=== PATIENT | male | born 2000 | race Caucasian/White ===

== ENCOUNTER 2022-01-28 14:01 | Emergency (ER) | payer SELFPAY ==
[2022-01-28 14:02] VITALS: BP 138/84; PULSE 69; RESP 16; TEMP 36.3; O2SAT 100; BMI 21.9
--- NOTE | 2022-01-28 14:14 | EDS_ITS ---
HPI History of Present Illness Chief Complaint: Upper Extremity Injury Detail of Chief Complaint: Left back and shoulder blade pain Informant: patient Narrative Narrative: Patient presents to the emergency department complaint of pain in his left upper back underneath the shoulder blade that started about 6 days ago. 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 Pains been there continuously. Patient denies any fever or chills or sweats. Pain is worse with certain movements and with deep breath. Patient is right-hand dominant. He denies any significant shortness of breath. PFSH PFSH Medical History no medical history Home Medications cyclobenzaprine 10 mg PO TID PRN #20 tablet 01/28/22 [Rx Last Taken Unknown] hydrocodone-acetaminophen 1 tab PO Q4H PRN PRN 2 Days #10 tablet 01/28/22 [Rx Last Taken Unknown] naproxen 500 mg PO BID #14 tab 01/28/22 [Rx Last Taken Unknown] Allergy/AdvReac Type Severity Reaction Status Date / Time No Known Allergies Allergy Verified 01/28/22 14:03 Surgical History no surgical history Social History Smoking Status: Unknown if ever smoked ROS ROS ED Constitutional Constitutional ED: Reports systems reviewed and no addt'l complaints, except as documented; Denies body ache(s), change in weight or chills Eyes Eyes: Denies acute decrease in peripheral vision, change in vision, double vision or loss of vision ENT ENT ED: Reports none; Denies ear pain, lip swelling, loss taste/smell, neck pain, otalgia or sore throat Cardiovascular Cardiovascular: Reports none; Denies abdominal pain, chest pain with activity, leg edema, lightheadedness, palpitations, rapid heart rate or syncope Respiratory/Chest Respiratory/Chest: Reports none; Denies change in mental status, dry cough, dyspnea, hemoptysis, shortness of breath at rest or shortness of breath with e xertion Gastrointestinal Gastrointestinal: Reports none; Denies abdominal pain, change in stool charact er, diarrhea, hematemesis, hematochezia, melena, rectal bleeding or vomiting Genitourinary Genitourinary ED: Reports none; Denies abdominal discomfort, anuria, dysuria, genital pain or polyuria Musculoskeletal Musculoskeletal: Reports none and back pain; Denies arthralgias, difficulty walking, extremity pain, muscle weakness or myalgias Integumentary Reports none; Denies abscess or rash Neurologic Neurologic: Reports none; Denies abnormal gait, confusion, focal weakness, frequent falls, headache(s), loss of vision, numbness, paresthesias, radicular pain, vertigo or weakness Psychiatric Psychiatric: Reports systems reviewed and no addt'l complaints, except as documented and none; Denies behavioral changes, confusion, difficulty co ncentrating, hallucinations, suicidal ideation, tactile hallucinations or visual hallucinations Endocrine Endocrinology: Denies none, cold intolerance, excessive sweating, fatigue or heat intolerance Hematologic/Lymphatic Hematologic/Lymphatic: Reports none; Denies anemia, easy bleeding or easy bruising Allergic/Immunologic Allergic/Immunologic ED: Denies as per HPI, none, lip swelling, mouth swelling, throat swelling, tongue swelling or hives EXAM Physical Exam Const Vital Signs: 01/28/22 14:02 Temperature 97.3 F L Temperature Source Temporal Pulse Rate 69 Respiratory Rate 16 Blood Pressure 138/84 H Blood Pressure Mean 102 Pulse Ox 100 Oxygen Delivery Method Room Air Positive well nourished and well developed General Appearance ED: well developed and NAD HEENT Reports TM's clear and moist mucous membranes normocephalic and atraumatic; Negative for trauma or tenderness Tympanic Membrane ED: Yes TM's clear Eyes PERRL and EOMs intact bilaterally General Eye ED: Negative for pale conjunctiva or scleral icterus Neck no lymphadenopathy, supple and no JVD General: Negative for tenderness Chest Wall inspection of chest normal and palpation of chest normal Chest: Negative for tenderness Resp normal respiratory effort and clear to auscultation bilaterally Effort and Inspection: Negative for respiratory distress or pain with movement Auscultation: Negative for rhonchi, wheezes or diminished lung sounds Cardio regular rate, regular rhythm, S1 normal heart sound, S2 normal heart sound and no murmurs Peripheral Pulses: pulses 2+ throughout GI normal to inspection, nondistended, normoactive bowel sounds, soft to palpation, non-tender, non-distended and no masses Back/Spine no thoracic nor lumbar tenderness Back/Spine Narrative: Evaluation of the back reveals tenderness palpation over the left thoracic paraspinal musculature just medial to the scapula that seems to somewhat reproduce his pain. Patient has no tenderness over the thoracic or lumbar spine. Extremity normal to inspection General Extremety ED: Negative for edema General Extremity: Negative for edema Neuro oriented x3, CN's II-XII intact bilaterally, no sensory deficits noted and gait normal Sensorium / Orientation: awake, alert, oriented to person, oriented to place and oriented to time Motor Exam: strength 5/5 throughout and strength abnormal Psych mental status grossly normal Skin no rashes or lesions noted and no wounds MDM MDM MDM Narrative Medical decision making narrative: I suspect patient likely has thoracic strain. Patient will be given work restrictions. Patient was given a prescription for Naprosyn, Flexeril, and a few [place] for pain. Patient did not want to file this under Workmen's Comp. Radiography Diagnostic Testin view chest x-ray obtained interpreted by myself as no acute disease process. Official report from radiology pending. I did not appreciate any pneumothorax or pneumonia or obvious fractured ribs. Discharge Plan Triage Chief Complaint: Upper Extremity Injury ED Provider: Argentina Jones Dx/Rx/DC Orders Clinical Impression: Thoracic myofascial strain Instructions: ED Back Sprain/Strain Prescriptions: New cyclobenzaprine [cyclobenzaprine] 10 MG tablet 10 mg PO TID PRN (Reason: Muscle Spasm) Qty: 20 RF: 0 hydrocodone-acetaminophen [hydrocodone-acetaminophen] 1 TABLET tablet 1 tab PO Q4H PRN PRN (Reason: Pain) 2 Days Qty: 10 RF: 0 naproxen 500 MG tablet 500 mg PO BID Qty: 14 RF: 0 Primary Care Provider: Care Physician,No Primary Referrals: Cecilia Yanes MD [STAFF PHYSICIAN] - 3-5 Days Care Physician,No Primary [Primary Care Provider] - Disposition Disposition: Home, Self Care
--- NOTE | 2022-01-28 14:33 | RAD_ITS ---
INDICATION: back pain EXAMINATION/TECHNIQUE: X-RAY - XR Chest 1 View COMPARISON: None. FINDINGS: The lungs are clear. The cardiomediastinal silhouette is unremarkable. No pleural effusion or pneumothorax. No acute osseous abnormalities. RAD/Chest 1 View (Portable) IMPRESSION: No acute radiographic abnormalities. Electronically Signed: El Sim MD at 16:35 EDT ,
== END 2022-01-28 14:56 | disposition home or self-care (01) ==
PROVIDERS: Emergency Provider Emergency Medicine; Visit Provider Emergency Medicine
DX: S29.019A Strain of muscle and tendon of unspecified wall of thorax, initial encounter (principal); X58.XXXA Exposure to other specified factors, initial encounter; Y99.0 Civilian activity done for income or pay
CPT/HCPCS: 71045; 99282

== ENCOUNTER 2025-09-13 20:20 | Emergency (ER) | payer SELFPAY ==
[2025-09-13 20:20] VITALS: BP 152/95; PULSE 91; RESP 16; TEMP 36.6; O2SAT 100; BMI 21.7
--- NOTE | 2025-09-13 21:18 | MRI_ITS ---
PROCEDURE: SPINE CERVICAL W/WO CONTRAST 09/13/2025 REASON FOR EXAM: BACK PAIN, RECENT SPINAL SURGERY TECHNIQUE: Procedure Code: [id number] Modality: MR Procedure: SPINE CERVICAL W/WO CONTRAST Multiplanar and multisequence images were obtained with intravenous gadolinium- based contrast administration. CONTRAST: Clariscan VOLUME: 15 mL COMPARISON: None. FINDINGS: Mild diffuse spondylosis. Multilevel degenerative disc disease. There is normal signal intensity from the visualized bone marrow without evidence of replacement or acute fracture. The visualized portions of the spinal cord are unremarkable. The visualized portions of the posterior fossa are unremarkable. There is normal cervical lordosis. Evaluation of the individual levels revealed the following: C2-C3: Grade 1 retrolisthesis measuring 2.4 mm. Mild diffuse disc bulge. The spinal canal is not narrowed. Minimal bilateral neural foramina narrowing. C3-C4: There is no evidence of disk herniation. The spinal canal is not narrowed. There is no evidence of neural foramina narrowing. C4-C5: Grade 1 retrolisthesis measuring 2.2 mm. Mild diffuse disc bulge. The spinal canal is not narrowed. Minimal bilateral neural foramina narrowing. C5-C6: Grade 1 anterolisthesis measuring 2.4 mm. Mild diffuse disc bulge. The spinal canal is not narrowed. There is moderate right and mild left neural foramina narrowing. C6-C7: There is mild diffuse disc bulge. Superimposed broad-based left paracentral/posterolateral disc protrusion measuring 3.5 mm. The spinal canal is not narrowed. There is mild bilateral neural foramina narrowing. No abnormal postcontrast enhancement is noted. MRI/Spine Cervical W/WO Contrast IMPRESSION: Degenerative disc disease. Reading [facility] [id number]
--- NOTE | 2025-09-13 21:18 | MRI_ITS ---
PROCEDURE: SPINE THORACIC W/WO CONTRAST 09/13/2025 REASON FOR EXAM: BACK PAIN, RECENT SPINAL SURGERY TECHNIQUE: Thoracic spine MRI without and with intravenous gadolinium-based contrast. Multiplanar and multisequence images were obtained. CONTRAST: Clariscan VOLUME: 15mL COMPARISON: CT angiography of the chest on 09/13/2025. FINDINGS: Prior decompression and fusion with unremarkable transpedicular screws from T2- T10 levels. Well-defined superficial subcutaneous seroma is noted in the upper aspect of the surgical bed measuring 12.3 x 1.8 x 4.2 cm in its largest craniocaudal, anteroposterior and transverse dimensions respectively without secondary narrowing of the spinal canal or compression of the cord. Unchanged compression deformities of the thoracic vertebral bodies, more prominent at T7 and T8. No associated bone marrow edema to suggest an acute or subacute compression. Mild diffuse disc bulges are noted T7-T8 and T8-T9 levels. T1-2, T2-3, T3-4, T4-5, T5-6, T6-7, T9-10, T10-11, T11-12, T12-L1: There is preservation of the disc heights. There is no endplate spondylosis. There is no annular bulge. There is no facet arthrosis. Normal central canal, lateral recesses and intervertebral neural foramina without neural impingement. Normal visualized lamina and spinous processes. Normal thoracic cord. There is no osseous destructive process. Normal visualized descending aorta. No demonstrated pulmonary abnormality of the visualized pulmonary structures. MRI/Spine Thoracic W/WO Contrast IMPRESSION: Prior decompression and fusion with unremarkable transpedicular screws from T2- T10 levels. Well-defined superficial subcutaneous seroma is noted in the upper aspect of th e surgical bed measuring 12.3 x 1.8 x 4.2 cm in its largest craniocaudal, anteroposterior and transverse dimensions respectivel y without secondary narrowing of the spinal canal or compression of the cord. Unchanged compression deformities of the thoracic vertebral bodies, more prominent at T7 and T8. No associated bone marrow edema to suggest an acute or subacute compression. Mild diffuse disc bulges are noted T7-T8 and T8-T9 levels. Reading [facility]
--- NOTE | 2025-09-13 21:18 | MRI_ITS ---
PROCEDURE: SPINE LUMBAR W/WO CONTRAST 09/13/2025 REASON FOR EXAM: BACK PAIN, RECENT SPINAL SURGERY TECHNIQUE: Procedure Code: [id number] Modality: MR Procedure: SPINE LUMBAR W/WO CONTRAST Multiplanar and multisequence images were obtained without and with intravenous gadolinium-based contrast administration. CONTRAST: Clariscan VOLUME: 15 mL COMPARISON: None. FINDINGS: There is normal signal intensity from the visualized bone marrow without evidence of replacement or acute fracture. The conus is unremarkable. Straightening of the lumbar lordosis. Evaluation of the individual levels revealed the following: L5-S1: Grade 1 retrolisthesis measuring 3.5 mm. Mild diffuse disc bulge. Superimposed broad-based central/right paracentral disc protrusion measuring 4.2 mm. The spinal canal is not narrowed. There is mild bilateral neural foramina narrowing. L4-5: There is mild diffuse disc bulge. Superimposed broad-based left paracentral disc extrusion measuring 3.2 mm. The spinal canal is not narrowed. There is mild bilateral neural foramina narrowing. L3-4: There is mild diffuse disc bulge. The spinal canal is not narrowed. There is mild bilateral neural foramina narrowing. L2-3: There is no evidence of disk herniation. The spinal canal is not narrowed. There is no evidence of neural foramina narrowing. L1-2: There is no evidence of disk herniation. The spinal canal is not narrowed. There is no evidence of neural foramina narrowing. Normal visualized paraspinous soft tissue structures. No abnormal postcontrast enhancement is noted. MRI/Spine Lumbar W/WO Contrast IMPRESSION: Degenerative disc disease. Reading [facility]
--- NOTE | 2025-09-13 21:21 | ED.VIS.BACK ---
HPI History of Present Illness Chief Complaint: Back Narrative Narrative: Patient is a 24-year-old male presenting to the emergency department for back pain. Patient fell from a 20 foot hunting had a stool on 09/04. He went to [facility] and was discharged on 09/09. Patient states that he ran out of his oxycodone yesterday and has been taking only Tylenol and Motrin since. States that he has worsening back pain today. He endorses subjective fever, states he was sweating. He denies any numbness or weakness in his legs. Denies any bowel or bladder retention or incontinence. Denies any numbness or weakness in his legs. Denies any saddle anesthesia. Family member at bedside also states that he has intermittently been having hemoptysis. He denies any chest pain or shortness of breath. PFSH PFS Home Medications ?Medication ?Instructions ?Recorded ?Last Taken ?Type ibuprofen 600 mg tablet (IBU) 600 mg PO Q8H 09/13/25 Unknown History methocarbamol 500 mg tablet 500 mg PO Q8H 09/13/25 Unknown History Allergy/AdvReac Type Severity Reaction Status Date / Time No Known Allergies Allergy Verified 09/13/25 20:20 Surgical History (Updated 09/13/25 @ 21:32 by Emma Parham) Hx of appendectomy History of back surgery Social History Smoking Status: Current every day smoker tobacco type: e-cigarettes ROS ROS ED ROS Narrative see HPI EXAM Physical Exam Narrative Exam Narrative: Vital signs: Reviewed General: Alert and orientedx3. No acute distress HEENT: Head is normocephalic and atraumatic, sinuses nontender, pupils equal round and reactive. Nares are patent. Oropharynx and throat exams normal. Neck: Supple without lymphadenopathy nontender Cardiovascular: Regular rate and rhythm, no murmurs. No rubs or gallops. Normal S1 and S2 Respiratory: Clear to auscultation bilaterally. No wheezes, rales, rhonchi Abdominal: Soft and nontender. Normal bowel sounds. No guarding or rebound. Nonsurgical abdomen Extremities: No tenderness. No bruising. Normal range of motion, 5 out of 5 strength in bilateral lower extremities. Normal sensation bilateral lower extremities. Back: Midline vertical surgical incision extending from upper thoracic to lower thoracic/lower lumbar that is healing well. There are ayanna still in place. There is no surrounding erythema, drainage or fluctuance to suspect a overlying cellulitis or abscess. Patient has no sensation on palpation of the midline cervical, thoracic or upper lumbar regions. Skin: No rash or redness. Neurological: Cranial nerves II through XII are grossly intact. Normal strength and sensation. Normal cerebellar function The rest of the physical exam is unremarkable Const Vital Signs: 09/13/25 20:20 09/13/25 21:54 09/13/25 22:20 Temperature 98 F Temperature Source Temporal Pulse Rate 91 80 Respiratory Rate 16 18 Respiratory Effort Normal Non-Labored Respiratory Pattern Normal Blood Pressure 152/95 H 154/96 H Blood Pressure Mean 114 115 Pulse Ox 100 95 Oxygen Delivery Method Room Air Room Air MDM MDM MDM Narrative Medical decision making narrative: Patient is a 24-year-old male presenting to the emergency department for back pain. Patient was seen and examined. Vitals are stable. Patient resting in bed comfortably no acute distress. Paperwork that was brought in by family member shows that he had T1 compression fracture, T5 and T8 burst fractures, T6 and T7 Chance fracture's, spinal cord edema from T6-T8. T2-T10 posterior spinal fusion was completed. Multiple other traumatic findings including mediastinal hematoma likely from the thoracic injury. was cleared by vascular surgery. Patient has no neurologic symptoms in his lower extremities and has no signs of cauda equina. Given the patient's extensive spinal surgery done about a week ago and his complaints of worsening back pain it is very difficult to exclude any spinal cord edema, hematoma, spinal epidural abscess without imaging. I think these are unlikely however he is very high risk for the above. Therefore MRI of the cervical, thoracic and lumbar spine were ordered. The patient ran out of his oxycodone yesterday which I think may be causing his worsening back pain however the above emergent causes need to be ruled out. Lab work was obtained. Patient was given morphine for pain control. CBC with no leukocytosis and anemia of 9.8. BMP with no significant abnormalities. CTA of the chest was also obtained due to feeling broke bedside stating that he has intermittently been coughing up blood. He states that this has been occurring since he was hospitalized however again he is high risk for pulmonary embolism given his recent significant trauma and hospitalization with decreased mobility. CT of the chest shows no acute intrathoracic abnormality and no pulmonary arterial emboli. EKG shows normal sinus rhythm with nonspecific T wave abnormality. No dysrhythmia. Patient will be signed out to oncoming provider pending MRI imaging. History & Record Review Discussion w/independent historian: Patient and Family Additional record(s) reviewed:: Prior outpatient record Lab Data Attestation: I reviewed the patient's lab results. Labs: Laboratory Results - last 24 hr 09/13/25 21:27 WBC 8.6 RBC 3.32 L Hgb 9.8 L Hct 29.6 L MCV 89.2 MCH 29.5 MCHC 33.1 RDW Std Deviation 45.1 H RDW Coeff of Lisandra 14.4 Plt Count 506 H MPV 8.8 Immature Gran % (Auto) 0.800 Neut % (Auto) 76.9 H Lymph % (Auto) 13.5 L [place] % (Auto) 7.7 Eos % (Auto) 0.6 Baso % (Auto) 0.5 Absolute Neuts (auto) 6.6 Absolute Lymphs (auto) 1.16 Nucleated RBC % 0 Sodium 144 Potassium 4.1 Chloride 106 Carbon Dioxide 28.8 Anion Gap 10 BUN 11 Creatinine 0.68 L Estim Creat Clear Calc 195.19 Est GFR (MDRD) Non-Af 133 BUN/Creatinine Ratio 16.6 Glucose 119 H Calcium 9.6 Radiography Diagnostic Testing: Clinical Impression(s) from Imaging Studies Chest CTA 09/13/25 21:55 IMPRESSION: No acute intrathoracic abnormality. No pulmonary arterial emboli. Reading Location: [facility] Discharge Plan Triage Chief Complaint: Back ED Provider: Aliyah Alvarado Dx/Rx/DC Orders Prescriptions: No Action methocarbamol 500 mg tablet 500 mg PO Q8H ibuprofen [IBU] 600 mg tablet 600 mg PO Q8H Primary Care Provider: Care Physician,No Primary Referrals: Care Physician,No Primary [Primary Care Provider, Medical] Print Language: Greek
--- OUTSIDE RECORDS SUMMARY | 2025-09-13 21:31 | XMS RPT_ITS | CCD ---
Author Organization [facility] Care Team Providers Care Hydropulper Name Role Phone LINDA CUELLAR Attending Unavailable GABRIELE HOLCOMB Primary Care Unavailable NO, PHYSICIAN Primary Care Unavailable Unavailable Primary Care Provider Unavailabl e Unavailable Primary Care Provider Unavailabl e Medications Current Medications Medication Drug Class(es) Dates Sig (Normalized) Sig (Original) acetaminophen 325 mg / HYDROcodone bitartrate 5 mg oral tablet (1 source) Opioid Agonist Start: 01-28-2022 take 1 tablet by mouth every four hours as needed Hydrocodone-Acetamin ophen Active 1 TABLET PO EVERY 4 HOURS NEEDED 07 29January 28, 2022 2:49pm azithromycin 250 mg oral tablet (1 source) Macrolide Antimicrobial Start: 08-07-2023 End: 08-12-2023 azithromycin (ZITHROMAX Z-AMAYA) 250 mg tablet Indications: Non-recurrent acute serous otitis media of right ear Take 2 tablets day one, then, 1 tablet daily until gone. 6 tablet 0 08/07/2023 08/12/2023 Active Comment on above: Take 2 tablets day o ne, then, 1 tablet daily until gone. benzonatate 100 mg oral capsule (2 sources) Non-narcotic Antitussive Start: 08-07-2023 take 1 capsule by mouth three times daily as needed for cough benzonatate (TESSALON PERLES) 100 mg capsule Indications: Acute cough Take 1 capsule by mouth three times a day as needed for cough. 60 capsule 08/07/2023 Active Comment on above: Take 1 capsule by mo [facility] three times a day as needed for cough. cyclobenzaprine hydrochloride 10 mg oral tablet (1 source) Muscle Relaxant Start: 01-28-2022 take 10 mg by mouth three times daily Cyclobenzaprine Active 10 MG PO THREE TIMES A DAY January 28, 2022 2:49pm naproxen 500 mg oral tablet (1 source) Nonsteroidal Anti-inflammatory Drug Start: 01-28-2022 take 500 mg by mouth twice daily Naproxen Active 500 MG PO TWICE A DAY January 28, 2022 2:49pm penicillin v potassium 500 mg oral tablet (1 source) Start: 12-29-2024 End: 01-08-2025 take 1 tablet by mouth four times daily penicillin V potassium 500 mg tablet Indications: Dental infection Take 1 tablet by mouth four times daily for 10 days. 40 tablet 12/29/2024 01/08/2025 Active polymyxin b 97818 unt/ml / trimethoprim 1 mg/ml ophthalmic solution (1 source) Dihydrofolate Reductase Inhibitor Antibacterial, Polymyxin-class Antibacterial Start: 05-10-2023 End: 05-17-2023 take 1 drop(s) into the eye(s) every four hours trimethoprim-polymyx in (POLYTRIM) 10,000 unit- 1 mg/mL ophthalmic solution Use 1 Drop in the right eye every 4 hours for 7 days. 10 mL 0 05/10/2023 05/17/2023 Active Comment on above: Use 1 Drop in the ri ght eye every 4 hours for 7 days. Problems Problem Classification Problem Date Documented Da te Episodic/Chronic Disorders of teeth and jaw (1 source) Infection of tooth; Translations: [Periapical abscess without sinus] 12-29-2024 Episodic Inflammation; infection of eye (except that caused by tuberculosis or sexually transmitteddisease) (1 source) Bacterial conjunctivitis; Translations: [Unspecified conjunctivitis] 05-10-2023 Episodic Other lower respiratory disease (1 source) Cough; Translations: [Acute cough] 08-07-2023 Episodic Otitis media and related conditions (1 source) Acute non-suppurative otitis media - serous; Translations: [Acute serous otitis media, right ear] 08-07-2023 Episodic Sprains and strains (1 source) Strain of muscle at thorax level; Translations: [Strain of muscle and tendon of unspecified wall of thorax, initial encounter] Episodic Results Test Name Value Interpretation Reference Range Facil tena ARMSTRONGon 12-29-2024 CNOV Office Visit ([facility] ) RICHAR MACIEL ([id number]) 2000 M Date Time Provider Department 12/29/24 10:15 AM ASHLEY NEFF [facility] During your visit today, we recorded the following information about you: Temperature Pulse Respiration Blood pressure 98 degrees 68/minute 16/minute 136/84 Weight 84.7 kg Ashley Neff PA-C 12/29/2024 9:36 AM Signed This note was created using [employer]. Subjective Richar Maciel is a 24 year old male. Patient is a 24-year-old male who complains of increasing pain and swelling to the site of a recent dental extraction that he received on Saturday, 21 December 2024. Patient reports no bleeding, serous or purulent fluid to the site. Patient states that the remainder of his dentitions and gingiva are unaffected. Patient reports no fever, chills or other illness symptoms. Dental Problem Review of Systems HENT: Positive for dental problem. All other systems reviewed and are negative. Objective BP 136/84 Pulse 68 Temp 36.7 ?C (98 ?F) (Tympanic) Resp 16 Wt 84.7 kg (186 lb 11.7 oz) SpO2 97% Physical Exam Vitals and nursing note reviewed. Constitutional: Appearance: Normal appearance. He is normal weight. HENT: Head: Normocephalic and atraumatic. Right Ear: External ear normal. Left Ear: External ear normal. Nose: Nose normal. Mouth/Throat: Mouth: Mucous membranes are moist. Pharynx: Oropharynx is clear. Comments: Post-extraction socket is noted to the right mandibular first molar. Mild edema is noted, however there is no erythema or visible abscess. No bleeding, serous appearing fluid is noted. Buccal mucosa and lingual mucosa are clear. Eyes: Extraocular Movements: Extraocular movements intact. Conjunctiva/sclera: Conjunctivae normal. Pupils: Pupils are equal, round, and reactive to light. Cardiovascular: Rate and Rhythm: Normal rate and regular rhythm. Pulses: Normal pulses. Heart sounds: Normal heart sounds. Pulmonary: Effort: Pulmonary effort is normal. Breath sounds: Normal breath sounds. Musculoskeletal: Cervical back: Normal range of motion and neck supple. Skin: General: Skin is warm and dry. Capillary Refill: Capillary refill takes less than 2 seconds. Neurological: General: No focal deficit present. Mental Status: He is alert and oriented to person, place, and time. Psychiatric: Mood and Affect: Mood normal. Behavior: Behavior normal. Thought Content: Thought content normal. Judgment: Judgment normal. Assessment and Plan Physical exam findings as noted above. Patient was provided with a prescription for penicillin VK 500 mg and advised to schedule an appointment with his dentist for reevaluation and further management. Patient verbalizes clear understanding the above instructions. CLINICAL IMPRESSION: Post-Extraction Dental Infection ASSESSMENT/PLAN: 1. Dental infection - ICD9: 522.4, ICD10: K04.7 - PENICILLIN V POTASSIUM 500 MG TABLET Ashley Neff PA-C Allergies As of Date: 12/29/2024 (No Known Allergies) Date Reviewed: 12/29/2024 Reviewed by: Tonia Cobb LPN - Fully Assessed Reason for Visit: Dental Problem [31] Cmt: Tooth extraction 1 week ago-now pain in right jaw Primary Visit Diagnosis:Dental infection [K04.7] Order(s):penicillin V potassium 500 mg tabletTake 1 tablet by mouth four times daily for 10 days.Disp: 40 tabletRfl: 0 Prescriptions as of 12/29/2024 - penicillin V potassium 500 mg tablet Take 1 tablet by mouth four times daily for 10 days. - benzonatate (TESSALON PERLES) 100 mg capsule Take 1 capsule by mouth three times a day as needed for cough. Problem List As Of Date: 12/29/2024 (None) Prescriptions ordered this encounter Disp Refills Start End PENICILLIN V POTASSIUM 500 MG TABLET 40 t* 0 12/29/2024 01/08/2025 Route: ORAL Sig: Take 1 tablet by mouth four times daily for 10 days. Level of Service: OFFICE/OUTPATIENT [facility] 30 MINUTES [73330] Letter Text Encounter Status:Closed by ASHLEY NEFF on 12/29/24 Normal [facility] Chest 1 View (Portable)on Chest 1 View (Portable) [facility] Imaging Services [address] [place] [id number] Chest 1 View (Portable) MR#: [id number] Acct: [id number] Name: RICHAR MACIEL Rep #: [id number] : 2000 M 21 From: [place] MD PCP: Care Physician,No Primary Status: DEP ER Study: Chest 1 View (Portable) Date of Exam: 01/28/22 Exam# [id number] Ordering Dr: rAgentina Jones DO INDICATION: back pain EXAMINATION/TECHNIQUE: X-RAY - XR Chest 1 View COMPARISON: None. FINDINGS: The lungs are clear. The cardiomediastinal silhouette is unremarkable. No pleural effusion or pneumothorax. No acute osseous abnormalities. RAD/Chest 1 View (Portable) IMPRESSION: No acute radiographic abnormalities. Electronically Signed: El Sim MD at 16:35 EDT , CC: Dr. Argentina Jones DO; No Primary Care Physician Road Traffic Controller: Signed Normal [facility] Emergency Department Summary on 01-28-2022 Emergency Department Summary [facility] Medical Records Department [address] [place] [id number] Emergency Department Summary 01/28/22 MR#: [id number] Acct: [id number] Name: RICHAR MACIEL Rep #: [id number] : 2000 21 From: Argentina Jones DO PCP: Care Physician,No Primary Status:DEP ER Location: ED HPI History of Present Illness Chief Complaint: Upper Extremity Injury Detail of Chief Complaint: Left back and shoulder blade pain Informant: patient Narrative Narrative: Patient presents to the emergency department complaint of pain in his left upper back underneath the shoulder blade that started about 6 days ago. 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 Pains been there continuously. Patient denies any fever or chills or sweats. Pain is worse with certain movements and with deep breath. Patient is right-hand dominant. He denies any significant shortness of breath. PFSH PFSH Medical History no medical history Home Medications cyclobenzaprine 10 mg PO TID PRN #20 tablet 01/28/22 [Rx Last Taken Unknown] hydrocodone-acetaminoph en 1 tab PO Q4H PRN PRN 2 Days #10 tablet 01/28/22 [Rx Last Taken Unknown] naproxen 500 mg PO BID #14 tab 01/28/22 [Rx Last Taken Unknown] Allergy/AdvReac Type Severity Reaction Status Date / Time No Known Allergies Allergy Verified 01/28/22 14:03 Surgical History no surgical history Social History Smoking Status: Unknown if ever smoked ROS ROS ED Constitutional Constitutional ED: Reports systems reviewed and no addt'l complaints, except as documented; Denies body ache(s), change in weight or chills Eyes Eyes: Denies acute decrease in peripheral vision, change in vision, double vision or loss of vision ENT ENT ED: Reports none; Denies ear pain, lip swelling, loss taste/smell, neck pain, otalgia or sore throat Cardiovascular Cardiovascular: Reports none; Denies abdominal pain, chest pain with activity, leg edema, lightheadedness, palpitations, rapid heart rate or syncope Respiratory/Chest Respiratory/Chest: Reports none; Denies change in mental status, dry cough, dyspnea, hemoptysis, shortness of breath at rest or shortness of breath with exertion Gastrointestinal Gastrointestinal: Reports none; Denies abdominal pain, change in stool character, diarrhea, hematemesis, hematochezia, melena, rectal bleeding or vomiting Genitourinary Genitourinary ED: Reports none; Denies abdominal discomfort, anuria, dysuria, genital pain or polyuria Musculoskeletal Musculoskeletal: Reports none and back pain; Denies arthralgias, difficulty walking, extremity pain, muscle weakness or myalgias Integumentary Reports none; Denies abscess or rash Neurologic Neurologic: Reports none; Denies abnormal gait, confusion, focal weakness, frequent falls, headache(s), loss of vision, numbness, paresthesias, radicular pain, vertigo or weakness Psychiatric Psychiatric: Reports systems reviewed and no addt'l complaints, except as documented and none; Denies behavioral changes, confusion, difficulty concentrating, hallucinations, suicidal ideation, tactile hallucinations or visual hallucinations Endocrine Endocrinology: Denies none, cold intolerance, excessive sweating, fatigue or heat intolerance Hematologic/Lymphatic Hematologic/Lymphatic: Reports none; Denies anemia, easy bleeding or easy bruising Allergic/Immunologic Allergic/Immunologic ED: Denies as per HPI, none, lip swelling, mouth swelling, throat swelling, tongue swelling or hives EXAM Physical Exam Const Vital Signs: 01/28/22 14:02 Temperature 97.3 F L Temperature Source Temporal Pulse Rate 69 Respiratory Rate 16 Blood Pressure 138/84 H Blood Pressure Mean 102 Pulse Ox 100 Oxygen Delivery Method Room Air Positive well nourished and well developed General Appearance ED: well developed and NAD HEENT Reports TM's clear and moist mucous membranes normocephalic and atraumatic; Negative for trauma or tenderness Tympanic Membrane ED: Yes TM's clear Eyes PERRL and EOMs intact bilaterally General Eye ED: Negative for pale conjunctiva or scleral icterus Neck no lymphadenopathy, supple and no JVD General: Negative for tenderness Chest Wall inspection of chest normal and palpation of chest normal Chest: Negative for tenderness Resp normal respiratory effort and clear to auscultation bilaterally Effort and Inspection: Negative for respiratory distress or pain with movement Auscultation: Negative for rhonchi, wheezes or diminished lung sounds Cardio regular rate, regular rhythm, S1 normal heart sound, S2 normal heart sound and no murmurs Peripheral Pulses: pulses 2+ throughout GI normal to inspection, nondistended, normoactive bowel sounds, soft to palpation, non-tender, non- distended and (more content not included)... Normal [facility] Vital Signs Date Time Vital Sign Value Performing Clinician Facility 12-29-2024 09:14-0500 Body temperature 98.01 [degF] [employer] Work Phone: [facility] 12-29-2024 09:14-0500 Body weight 84.7 kg SHADOW PA-[employer] Work Phone: [facility] 12-29-2024 09:14-0500 Diastolic blood pressure 84 mm[Hg] SHADOW PA-C Work Phone: [facility] 12-29-2024 09:14-0500 Heart rate 68 /min SHADOW PA-C Work Phone: [facility] 12-29-2024 09:14-0500 Respiratory rate 16 /min SHADOW PA-C Work Phone: [facility] 12-29-2024 09:14-0500 SaO2% (BldA) [Mass fraction] 97 % Ashley Coelhobarbie PA-C Work Phone: [facility] 12-29-2024 09:14-0500 Systolic blood pressure 136 mm[Hg] Ashley Neff PA-C Work Phone: [facility] 08-07-2023 08:46-0400 Body temperature 97.7 [degF] Aisha Fox APRN.[employer] Work Phone: [facility] 08-07-2023 08:46-0400 Body weight 79.38 kg Aisha Fox APRN.[employer] Work Phone: [facility] 08-07-2023 08:46-0400 Diastolic blood pressure 62 mm[Hg] Aisha Fox APRN.[employer] Work Phone: [facility] 08-07-2023 08:46-0400 Heart rate 72 /min Aisha Fox APRN.[employer] Work Phone: [facility] 08-07-2023 08:46-0400 Respiratory rate 16 /min Aisha Fox APRN.[employer] Work Phone: [facility] 08-07-2023 08:46-0400 SaO2% (BldA) [Mass fraction] 98 % Aisha Fox APRN.[employer] Work Phone: [facility] 08-07-2023 08:46-0400 Systolic blood pressure 122 mm[Hg] Aisha Fox APRN.[employer] Work Phone: [facility] 05-10-2023 08:34-0400 Body temperature 97.3 [degF] Aria Steward HOSPITALITY ASSOCIATE.[employer] Work Phone: [facility] 05-10-2023 08:34-0400 Body weight 79.11 kg Aria Steward HOSPITALITY ASSOCIATE.[employer] Work Phone: [facility] 05-10-2023 08:34-0400 Diastolic blood pressure 72 mm[Hg] Aria Steward HOSPITALITY ASSOCIATE.[employer] Work Phone: [facility] 05-10-2023 08:34-0400 Heart rate 54 /min Aria Callow HOSPITALITY ASSOCIATE.[employer] Work Phone: [facility] 05-10-2023 08:34-0400 Respiratory rate 16 /min Aria Steward HOSPITALITY ASSOCIATE.[employer] Work Phone: [facility] 05-10-2023 08:34-0400 SaO2% (BldA) [Mass fraction] 97 % Aria Steward HOSPITALITY ASSOCIATE.[employer] Work Phone: [facility] 05-10-2023 08:34-0400 Systolic blood pressure 122 mm[Hg] Aria Tamikojoy HOSPITALITY ASSOCIATE.[employer] Work Phone: [facility] 01-28-2022 14:02-0400 Body height 195.58 cm [facility] Work Phone: 01-28-2022 14:02-0400 Body mass index (BMI) [Ratio] 21.9 kg/m2 [facility] Work Phone: 01-28-2022 14:02-0400 Body temperature 97.3 [degF] [facility] Work Phone: 01-28-2022 14:02-0400 Body weight 83.91 kg [facility] Work Phone: 01-28-2022 14:02-0400 Diastolic blood pressure 84 mm[Hg] [facility] Work Phone: 01-28-2022 14:02-0400 Heart rate 69 /min [facility] Work Phone: 01-28-2022 14:02-0400 Respiratory rate 16 /min [facility] Work Phone: 01-28-2022 14:02-0400 SaO2% (BldA) [Mass fraction] 100 % [facility] Work Phone: 01-28-2022 14:02-0400 Systolic blood pressure 138 mm[Hg] [facility] Work Phone: Encounters Encounter Date Encounter Type Care Provider Facility Start: 12-29-2024 End: 12-29-2024 Office outpatient new 30 minutes Ashley Neff PA-C Work Phone: [facility] Comment on above: Dental infection (Pr imary Dx) Start: 12-29-2024 End: 12-29-2024 ambulatory Facility:[facility] Start: 08-07-2023 End: 08-07-2023 Patient encounter procedure Aisha Fox HOSPITALITY ASSOCIATE.[employer] Work Phone: [facility] Comment on above: Non-recurrent acute serous otitis media of right ear (Primary Dx); Acute cough Start: 05-10-2023 End: 05-10-2023 Patient encounter procedure Aria Steward HOSPITALITY ASSOCIATE.[employer] Work Phone: [facility] Comment on above: Bacterial conjunctiv itis (Primary Dx) Start: 01-28-2022 End: 01-28-2022 Emergency department patient visit [facility] Start: 03-14-2020 Patient encounter procedure [facility] Start: 12-08-2018 End: 12-12-2018 Patient encounter procedure PHYSICIAN [facility] Plan of Treatment Date Care Activity Detail Author Start: 06-28-2024 Covid-19 Vaccine ( season) Covid-19 Vaccine ( season) [facility] Start: 06-28-2024 Influenza vaccination Influenza Vaccine (#1) [facility] Start: 06-28-2023 Influenza vaccination [facility] Start: 10-28-2022 DEPRESSION ASSESSMENT DEPRESSION ASSESSMENT [facility] Start: 01-28-2022 Plain chest X-ray Chest 1 View (Portable) [facility] Work Phone: Start: 2018 Hepatitis B Vaccine (1 of 3 - 19+ 3-dose series) Hepatitis B Vaccine (1 of 3 - 19+ 3-dose series) [facility] Start: 2018 Pneumococcal vaccination Pneumococcal Vaccine (1 of 2 - PCV) [facility] Start: 2018 Urine microalbumin profile [facility] Start: 2017 Anxiety Screening Anxiety Screening [facility] Start: 2017 Depression Screening Depression Screening [facility] Start: 2017 HEPATITIS C SCREENING HEPATITIS C SCREENING [facility] Start: 2017 Hepatitis C screening Hepatitis C Screening [facility] Start: 2017 HIV SCREENING HIV SCREENING [facility] Start: 2017 HIV screening HIV Screening [facility] Start: 2015 Meningococcal B Vaccine: Consider Based On Risk (1 of 2 - Patient Seeks Protection) Meningococcal B Vaccine: Consider Based On Risk (1 of 2 - Patient Seeks Protection) [facility] Start: 2014 HPV Vaccine (1 - Male 3-dose series) HPV Vaccine (1 - Male 3-dose series) [facility] Start: 2013 PEDS TO ADULT TRANSITION ANNUAL ASSESSMENT PEDS TO ADULT TRANSITION ANNUAL ASSESSMENT [facility] Start: 2011 PEDS TO ADULT TRANSITION INITIAL DISCUSSION PEDS TO ADULT TRANSITION INITIAL DISCUSSION [facility] Start: 2008 HPV VACCINE (1 - Male 2-dose series) HPV VACCINE (1 - Male 2-dose series) [facility] Start: 2005 Pneumococcal vaccination Pneumococcal Vaccine (1 - PCV) [facility] Start: 03-22-2000 COVID-19 VACCINE (#1) COVID-19 VACCINE (#1) [facility] Start: 1999 HEPATITIS B (1 of 3 - 3-dose series) HEPATITIS B (1 of 3 - 3-dose series) [facility] Start: 1999 Hepatitis B Vaccine (1 of 3 - 3-dose series) Hepatitis B Vaccine (1 of 3 - 3-dose series) [facility] Patient Education ED Back Sprain/Strain [facility] Work Phone: Patient referral [facility] Work Phone: Payers Date Payer Category Payer Unknown [id number] 1967 Unknown [id number] 1967 Unknown [id number] Self-pay SELF PAY INSURANCE [id number] Unknown SELF PAY INSURANCE [id number] Social History Date Type Detail Facility Start: [facility]-28-[facility] Work Phone: Start: 2000 Sex Assigned At Male [facility] Work Phone: Start: 05-10-2023 [facility] History of tobacco use Cigarette Smoker [facility] Start: 05-10-2023 Tobacco use and exposure Smokeless tobacco non-user [facility] Start: 05-10-2023 End: 12-29-2024 History of Social function [facility] Start: 05-10-2023 End: 12-29-2024 Tobacco use panel [facility] Start: 2000 Sex Assigned At Not on file C [facility] Progress note 12-29-2024 Note Date & Type Note Facility 12-29-2024 Note HNO ID: [id number] Author: ASHLEY NEFF PA-C Service: ? Author Type: Physician [employer] Installation Mechanic Type: Progress Notes Filed: 12/29/2024 09:36 Note Text: This note was created using [employer]. Subjective Richar Maciel is a 24 year old male. Patient is a 24-year-old male who complains of increasing pain and swelling to the site of a recent dental extraction that he received on Saturday, 21 December 2024. Patient reports no bleeding, serous or purulent fluid to the site. Patient states that the remainder of his dentitions and gingiva are unaffected. Patient reports no fever, chills or other illness symptoms. Dental Problem Review of Systems HENT: Positive for dental problem. All other systems reviewed and are negative. Objective BP 136/84 Pulse 68 Temp 36.7 ?C (98 ?F) (Tympanic) Resp 16 Wt 84.7 kg (186 lb 11.7 oz) SpO2 97% Physical Exam Vitals and nursing note reviewed. Constitutional: Appearance: Normal appearance. He is normal weight. HENT: Head: Normocephalic and atraumatic. Right Ear: External ear normal. Left Ear: External ear normal. Nose: Nose normal. Mouth/Throat: Mouth: Mucous membranes are moist. Pharynx: Oropharynx is clear. Comments: Post-extraction socket is noted to the right mandibular first molar. Mild edema is noted, however there is no erythema or visible abscess. No bleeding, serous appearing fluid is noted. Buccal mucosa and lingual mucosa are clear. Eyes: Extraocular Movements: Extraocular movements intact. Conjunctiva/sclera: Conjunctivae normal. Pupils: Pupils are equal, round, and reactive to light. Cardiovascular: Rate and Rhythm: Normal rate and regular rhythm. Pulses: Normal pulses. Heart sounds: Normal heart sounds. Pulmonary: Effort: Pulmonary effort is normal. Breath sounds: Normal breath sounds. Musculoskeletal: Cervical back: Normal range of motion and neck supple. Skin: General: Skin is warm and dry. Capillary Refill: Capillary refill takes less than 2 seconds. Neurological: General: No focal deficit present. Mental Status: He is alert and oriented to person, place, and time. Psychiatric: Mood and Affect: Mood normal. Behavior: Behavior normal. Thought Content: Thought content normal. Judgment: Judgment normal. Assessment and Plan Physical exam findings as noted above. Patient was provided with a prescription for penicillin VK 500 mg and advised to schedule an appointment with his dentist for reevaluation and further management. Patient verbalizes clear understanding the above instructions. CLINICAL IMPRESSION: Post-Extraction Dental Infection ASSESSMENT/PLAN: 1. Dental infection - ICD9: 522.4, ICD10: K04.7 - PENICILLIN V POTASSIUM 500 MG TABLET Ashley Neff PA-C [facility] History of Present illness Narrative 12-29-2024 Ashley Neff PA-C - 12/29/2024 9:32 AM EST Note Date & Type Note Facility 12-29-2024 History of Presen t illness Narrative This note was created using Sailogyter. Subjective Richar Maciel is a 24 year old male. Patient is a 24-year-old male who complains of increasing pain and swelling to the site of a recent dental extraction that he received on Saturday, 21 December 2024. Patient reports no bleeding, serous or purulent fluid to the site. Patient states that the remainder of his dentitions and gingiva are unaffected. Patient reports no fever, chills or other illness symptoms. Dental Problem Review of Systems HENT: Positive for dental problem. All other systems reviewed and are negative. Objective BP 136/84 Pulse 68 Temp 36.7 C (98 F) (Tympanic) Resp 16 Wt 84.7 kg (186 lb 11.7 oz) SpO2 97% Physical Exam Vitals and nursing note reviewed. Constitutional: Appearance: Normal appearance. He is normal weight. HENT: Head: Normocephalic and atraumatic. Right Ear: External ear normal. Left Ear: External ear normal. Nose: Nose normal. Mouth/Throat: Mouth: Mucous membranes are moist. Pharynx: Oropharynx is clear. Comments: Post-extraction socket is noted to the right mandibular first molar. Mild edema is noted, however there is no erythema or visible abscess. No bleeding, serous appearing fluid is noted. Buccal mucosa and lingual mucosa are clear. Eyes: Extraocular Movements: Extraocular movements intact. Conjunctiva/sclera: Conjunctivae normal. Pupils: Pupils are equal, round, and reactive to light. Cardiovascular: Rate and Rhythm: Normal rate and regular rhythm. Pulses: Normal pulses. Heart sounds: Normal heart sounds. Pulmonary: Effort: Pulmonary effort is normal. Breath sounds: Normal breath sounds. Musculoskeletal: Cervical back: Normal range of motion and neck supple. Skin: General: Skin is warm and dry. Capillary Refill: Capillary refill takes less than 2 seconds. Neurological: General: No focal deficit present. Mental Status: He is alert and oriented to person, place, and time. Psychiatric: Mood and Affect: Mood normal. Behavior: Behavior normal. Thought Content: Thought content normal. Judgment: Judgment normal. Assessment and Plan Physical exam findings as noted above. Patient was provided with a prescription for penicillin VK 500 mg and advised to schedule an appointment with his dentist for reevaluation and further management. Patient verbalizes clear understanding the above instructions. CLINICAL IMPRESSION: Post-Extraction Dental Infection ASSESSMENT/PLAN: 1. Dental infection - ICD9: 522.4, ICD10: K04.7 - PENICILLIN V POTASSIUM 500 MG TABLET Ashley Neff PA-C documented in this encounter [facility] History of Present illness Narrative 08-07-2023 Aisha Fox APRN.[employer] [facility] - 08/07/2023 9:00 AM EDT Note Date & Type Note Facility 08-07-2023 History of Presen t illness Narrative This note was created using NoteWriter. Subjective Richar Maciel is a 22 year old male. Presents today with mild congestion, non-productive cough x 3 days with lower sternal/rib pain during coughing episodes and minimal shortness of breath with exertion, Right ear pain on/off x 2 weeks and sore throat 7/10. Taking Tylenol PRN. Smoking- no interest in quitting at this time. Denies fever, Nausea, vomiting, changes in bowel or bladder or skin rashes. Review of Systems Constitutional: Positive for fatigue. Negative for appetite change, chills and fever. HENT: Positive for congestion, ear pain (right), postnasal drip and sore throat (7/10). Negative for sinus pressure, sinus pain and trouble swallowing. Eyes: Negative. Respiratory: Positive for cough (non productive), chest tightness and shortness of breath (with exertion). Negative for wheezing. Cardiovascular: Negative. Gastrointestinal: Negative. Genitourinary: Negative. Skin: Negative. Objective BP 122/62 Pulse 72 Temp 36.5 C (97.7 F) Resp 16 Wt 79.4 kg (175 lb) SpO2 98% Physical Exam Constitutional: General: He is not in acute distress. Appearance: Normal appearance. He is not ill-appearing or toxic-appearing. HENT: Head: Normocephalic and atraumatic. Right Ear: Tympanic membrane is erythematous and bulging (with suppurative fluid behind right TM). Left Ear: Tympanic membrane is bulging (cloudy fluid with bubbles). Nose: Congestion (mild) and rhinorrhea (clear fluid) present. Mouth/Throat: Mouth: Mucous membranes are moist. Pharynx: Oropharynx is clear. Posterior oropharyngeal erythema (mild with clear fluid in posterior oropharynx) present. No oropharyngeal exudate. Eyes: Extraocular Movements: Extraocular movements intact. Conjunctiva/sclera: Conjunctivae normal. Pupils: Pupils are equal, round, and reactive to light. Cardiovascular: Rate and Rhythm: Normal rate and regular rhythm. Pulses: Normal pulses. Heart sounds: Normal heart sounds. No murmur heard. Pulmonary: Effort: Pulmonary effort is normal. No respiratory distress. Breath sounds: Normal breath sounds. No wheezing or rhonchi. Abdominal: General: Bowel sounds are normal. Palpations: Abdomen is soft. Musculoskeletal: Cervical back: Normal range of motion and neck supple. Skin: General: Skin is warm and dry. Capillary Refill: Capillary refill takes less than 2 seconds. Neurological: Mental Status: He is alert. Assessment and Plan 1. Non-recurrent acute serous otitis media of right ear - azithromycin (ZITHROMAX Z-AMAYA) 250 mg tablet; Take 2 tablets day one, then, 1 tablet daily until gone. Dispense: 6 tablet; Refill: 0 WAIT AND SEE ANTIBIOTIC X 48 HOURS EDUCATION ON USING -SALINE NASAL SPRAY TWICE DAILY -FLONASE TWICE DAILY 2. Acute cough - benzonatate (TESSALON PERLES) 100 mg capsule; Take 1 capsule by mouth three times a day as needed for cough. Dispense: 60 capsule; Refill: 0 Education and encouragement on Supportive care over the next 24-48 hours and to start antibiotic only if worsening. Declined COVID/FLU/RSV due to the results would not change the plan of care. Renny Verbalized understanding and agreement with plan of care. Will seek further treatment if any worsening of symptoms occurs. Aisha Fox APRN [employer] [facility] [facility] documented in this encounter [facility] Instructions 08-07-2023 Patient Instructions Note Date & Type Note Facility 08-07-2023 Instructions Aisha Fox APRN.[facility] - 08/07/2023 8:58 AM EDT [facility] PATIENT INFO ALLERGIC RHINITIS OVERVIEW Rhinitis refers to inflammation of the nasal passages. This inflammation can cause a variety of annoying symptoms, including sneezing, itching, nasal congestion, runny nose, and post-nasal drip (the sensation that mucus is draining from the sinuses down the back of the throat). Brief episodes of rhinitis are usually caused by respiratory tract infections with viruses (eg, the common cold). Chronic rhinitis is usually caused by allergies, but it can also occur from overuse of certain drugs, some medical conditions, and other unidentifiable factors. For many people, rhinitis is a lifelong condition that waxes and wanes over time. Fortunately, the symptoms of rhinitis can usually be controlled with a combination of environmental measures, medications, and immunotherapy (also called allergy shots). WHO GETS ALLERGIC RHINITIS? Allergic rhinitis, also known as hay fever, affects approximately 20 percent of people of all ages. The risk of developing allergic rhinitis is much higher in people with asthma or eczema and in people who have a family history of asthma or rhinitis. Allergic rhinitis can begin at any age, although most people first develop symptoms in childhood or young adulthood. The symptoms are often at their worst in children and in people in their 30s and 40s. However, the severity of symptoms tends to vary throughout life; many people experience periods when they have no symptoms at all. ALLERGIC RHINITIS CAUSES Allergic rhinitis is caused by a nasal reaction to small airborne particles called allergens (substances that provoke an allergic reaction). In some people, these particles also cause reactions in the lungs (asthma) and eyes (allergic conjunctivitis). The allergic reaction is characterized by activation of two types of inflammatory cells, called mast cells and basophils. These cells produce inflammatory substances, including histamine, that cause fluid to build up in the nasal tissues (congestion), itching, sneezing, and runny nose. Over several hours, these substances activate other inflammatory cells that can cause persistent symptoms. Seasonal versus perennial allergic rhinitis -- Allergic rhinitis can be seasonal (occurring during specific seasons) or perennial (occurring year round). The allergens that most commonly cause seasonal allergic rhinitis include pollens from trees, grasses, and weeds, as well as spores from fungi and molds. The allergens that most commonly cause perennial allergic rhinitis are dust mites, cockroaches, animal dander, and fungi or molds. Perennial allergic rhinitis tends to be more difficult to treat. ALLERGIC RHINITIS SYMPTOMS The symptoms of allergic rhinitis vary from person to person. Although the term rhinitis refers only to the nasal symptoms, many patients also experience problems with their eyes, throat, ears, and sleep, so it is helpful to consider the entire spectrum of symptoms. Nose: watery nasal discharge, blocked nasal passages, sneezing, nasal itching, post-nasal drip, loss of taste, facial pressure or pain Eyes: itchy, red eyes, feeling of grittiness in the eyes, swelling and blueness of the skin below the eyes (called allergic shiners) Throat and ears: sore throat, hoarse voice, congestion or popping of the ears, itching of the throat or ears Sleep: mouth breathing, frequent awakening, daytime fatigue, difficulty performing work When an allergen is present year round, the predominant symptoms include post-nasal drip, persistent nasal congestion, and poor-quality sleep. ALLERGIC RHINITIS DIAGNOSIS The diagnosis of allergic rhinitis is based upon a physical examination and the symptoms described above. Medical tests can confirm the diagnosis and identify the offending allergens. Identify allergens and other triggers -- It is often possible to identify the allergens and other triggers that provoke allergic rhinitis by: Recalling the factors that precede symptoms Noting the time at which symptoms begin Identifying potential allergens in a person's home, work, and school environments Skin tests may be useful for people whose symptoms are not well controlled with medications or in whom the offending allergen is not obvious. ALLERGIC RHINITIS TREATMENT The treatment of allergic rhinitis includes reducing exposure to allergens and other triggers, in combination with medication therapy. In most people, these measures effectively control the symptoms. Reduce exposure to triggers -- Some simple measures can reduce a person's exposure to allergens and triggers that provoke allergic rhinitis. Several different classes of drugs counter the inflammation that causes symptoms of allergic rhinitis. The severity of symptoms and personal preferences usually guide the selection of specific drugs. Nasal irrigation and saline sprays -- Rinsing the nose with a salt-water (saline) solution is called nasal irrigation or nasal lavage. Saline is also available in a standard nasal spray, although this is not as effective as using larger amounts of water in an irrigation. Nasal irrigation is particularly useful for treating drainage down the back of the throat, sneezing, nasal dryness, and congestion. The treatment helps by rinsing out allergens and irritants from the nose. Saline rinses also clean the nasal lining and can be used before applying sprays containing medications, to get a better effect from the medication. Nasal lavage with warmed saline can be performed as needed, once per day, or twice daily for increased symptoms. Nasal lavage carries few risks when performed correctly. Saline nasal sprays and irrigation kits can be purchased [id number]. Saline mixes can also be purchased or patients can make their own solution. A variety of devices, including bulb syringes, Neti pots, and bottle sprayers, may be used to perform nasal lavage; instructions for nasal lavage are provided in the table. At least 200 mL (about 3/4 cup) of fluid is recommended for each nostril. Nasal glucocorticoids -- Nasal glucocorticoids (steroids delivered by a nasal spray) are the first-line treatment for the symptoms of allergic rhinitis. These drugs have few side effects and dramatically relieve symptoms in most people. Studies have shown that nasal glucocorticoids are more effective than oral antihistamines for symptom relief. There are a number of nasal glucocorticoids available by prescription. Specific medications include fluticasone, mometasone, budesonide, flunisolide, triamcinolone, beclomethasone, fluticasone furoate, and ciclesonide. These drugs differ with regard to the frequency of doses, the spray device, and cost, but all are similarly effective for treating all the symptoms of allergic rhinitis. People with severe rhinitis may need to use a nasal decongestant for a few days before starting a nasal glucocorticoids to reduce nasal swelling, which will allow the nasal spray to reach more areas of the nasal passages. Some symptom relief may occur on the first day of therapy with nasal glucocorticoids, although their maximal effectiveness may not be noticeable for days to weeks. For this reason, nasal glucocorticoids are most effective when used regularly. Some people are able to use lower doses when symptoms are less severe. How to use a nasal spray -- Nasal sprays work best when they are used properly and the medication remains in the nose rather than draining down the back of the throat. If the nose is crusted or contains mucus, it should be cleaned with a saline nasal spray before a nasal spray that contains medication. The head should be positioned normally or with the chin slightly tucked. The spray should be directed away from the nasal septum (the cartilage that divides the two sides of the nose). The spray is dispensed and then sniffed in slightly to pull it into the higher parts of the nose. Sniffing too hard will result in the medicine draining down the throat, and should be avoided. Some people find that holding one nostril closed with a finger improves their ability to draw the spray into the upper nose. Medicine that drains into the throat may be spit out. Side effects -- The side effects of nasal steroids are mild and may include a mildly unpleasant smell or taste or drying of the nasal lining. In some people, nasal steroids cause irritation, crusting, and bleeding of the nasal septum, especially during the winter. These problems can be minimized by reducing the dose of the nasal steroid, applying a moisturizing nasal gel or spray to the septum before using the spray, or switching to a water-based (rather than an alcohol-based) spray. Studies suggest that nasal steroids are generally safe when used for many years. However, people who use these drugs for years should have periodic nasal examinations to check for rare side effects, such as nasal infection. Steroids taken as a pill or inhaled into the lungs can have side effects, especially when taken for long periods of time. However, the doses used in nasal steroids are low and are NOT associated with these side effects. However, clinicians usually recommend using the lowest effective dose. Antihistamines -- Antihistamines relieve the itching, sneezing, and runny nose of allergic rhinitis, but they do not relieve nasal congestion. Combined treatment with nasal steroids or decongestants may provide greater symptom relief than use of either alone. Oral medications -- Several antihistamines have been available for many years without a prescription, including brompheniramine (Dimetapp allergy , Nasahist B ), chlorpheniramine (Chlor-Trimeton ), diphenhydramine (Benadryl ), and clemastine (Tavist ). These drugs often cause sedation and should not be used before driving or operating machinery. Even if the person does not feel excessively drowsy, these drugs can have a sedating effect. Thus, patients should use caution. Less-sedating oral antihistamines include Loratadine (Claritin , Alavert ), desloratadine (Clarinex ), cetirizine (Zyrtec ), levocetirizine (Xyzal ), and fexofenadine (Saranya ). Loratadine and cetirizine are available without a prescription. These drugs work as well as the sedating antihistamines for rhinitis, but they are less sedating and are available in long-acting formulas. However, they may be more expensive. Nasal sprays -- Azelastine (Astelin ) and olopatadine (Patanase ) are prescription nasal antihistamine sprays that can be used daily or when needed to relieve symptoms of post-nasal drip, congestion, and sneezing. These sprays start to work within minutes after use. The most common side effect with azelastine is a bad taste in the mouth immediately after use. This can be minimized by keeping the head tilted forward while spraying, to prevent the medicine from draining down the throat. Decongestants -- Decongestants (like pseudoephedrine or phenylephrine [Sudafed , Actifed , Drixoral ]) are often combined with antihistamines in oral, [id number] allergy drugs. In the [place], pseudoephedrine has been used to make illegal drugs, which caused many companies to substitute phenylephrine for pseudoephedrine. However, phenylephrine is not effective for treating allergic rhinitis. Oral decongestants elevate blood pressure and are not appropriate for people with high blood pressure or certain cardiovascular conditions. Men with an enlarged prostate who have difficulty urinating may notice a worsening of this symptom when they take decongestants. Decongestants in the form of nasal sprays are also available, including oxymetazoline (Afrin ) and phenylephrine (Tyler-synephrine ). Nasal decongestant sprays should not be used for more than two to three days at a time because they may cause a type of rhinitis called rhinitis medicamentosa, which causes the nose to be congested constantly UNLESS the medication is used repeatedly. This condition can be difficult to treat. To avoid it, do not use decongestant sprays for more than 3 days. Cromolyn sodium -- Cromolyn sodium (Nasalcrom ) prevents the symptoms of allergic rhinitis by interfering with the ability of allergy cells to release natural chemicals that cause inflammation. This drug is available as an yxdz-iwc-dnztbsh nasal spray that must be used three to four times per day, preferably before symptoms have begun, to effectively prevent the symptoms of allergic rhinitis. Allergy shots -- Allergy shots, also known as allergen immunotherapy, are injections given to reduce a person's sensitivity to allergens. Allergy shots are only available for common allergens, such as pollens, cat and dog dander, dust mites, and molds. These shots contain solutions of the allergens to which a specific person is allergic, and are made up individually for each person. The process of immunotherapy changes the person's immune response to the allergens over time. As a result, being exposed to the allergen causes fewer or even no symptoms. Immunotherapy can help many people with allergic rhinitis. In children, immunotherapy can help prevent developing allergic asthma later in life. However, immunotherapy is relatively time-consuming and is often reserved for people who have a poor response to medication, or want to avoid taking medications long-term. Immunotherapy can be expensive, but many insurance plans cover the therapy because long-term use of allergy medications is also costly. Immunotherapy is usually started by an analytical research chemist. Treatment begins with several months of weekly injections of gradually increasing doses, followed by monthly maintenance injections. The maintenance injections can be given by a primary care provider. Immunotherapy is usually a long-term therapy, and the benefits of this therapy may lessen when it is discontinued. However, one study in people with allergies to grass pollen found that the benefits of three to four years of immunotherapy persisted when the injections were stopped [2]. Immunotherapy injections carry a small risk of a severe allergic reaction. These reactions occur with a frequency of 6 of every 10,000 injections. The symptoms usually begin within 30 minutes of the injection. For this reason, patients are required to remain in the office after routine injections so that such a reaction could be quickly treated. Because drugs called beta-blockers may interfere with the ability to treat these reactions, people who take beta-blockers are often advised to avoid immunotherapy. Other treatments -- Other drugs may be recommended for some people with allergic rhinitis. Ipratropium -- Nasal atropine is effective for the treatment of severe runny nose. This drug, available as ipratropium bromide (Atrovent ), is not generally recommended for people with glaucoma or men with an enlarged prostate. Leukotriene modifiers -- Release of substances called leukotrienes may contribute to the symptoms of allergic rhinitis. Drugs that block the actions of leukotrienes, called leukotriene modifiers, can be very useful in patients with asthma and allergic rhinitis. However, nasal steroids are more effective than leukotriene modifiers for treating allergic rhinitis; thus, leukotriene modifiers are generally reserved for patients who cannot tolerate nasal sprays (due to nose bleeds) or azelastine. EAR INFECTION, MIDDLE (Otitis Media) DESCRIPTION: Infection in the middle ear. This is not contagious from person to person, but the preceding respiratory infection causing it may be contagious. Involved is the middle-ear space where nerves and small bones connect to the eardrum on one side and the eustachian tube on the other side. Most common in infants and children age 3 months to 3 years. FREQUENT SIGNS AND SYMPTOMS: -Irritability. -Earache. -Feeling of fullness in the ear. -Hearing loss. -Fever. -Dizziness. -Discharge or leakage from the ear. -Diarrhea, vomiting (sometimes). -Pulling at the ear (small children). RISK INCREASE WITH: -Recent illness, such as a respiratory infection, that has lowered resistance. -Crowded or unsanitary living conditions. -Cold climate. -Change in altitude such as flying or driving up mountains. -Family history of ear infections. -Day care. -Smoking in household. PREVENTIVE MEASURES: -Bottle-feed or breast-feed infants in a sitting position with head up, never lying down. -Breast-feeding decreases chances of child having ear infections. -No smoking in household. -Wash bed linens, towels and heating pads regularly to prevent reinfection. TREATMENT: -Diagnosis is usually made by examination of the ear. Fluid from the ear may be cultured. -Treatment usually involves medication and supportive care to relieve pain. -Apply heat to the area around the ears to relieve pain. -Swimming should be avoided until infection clears. -Surgery to insert plastic tubes through the eardrum to drain pus or fluid from the middle ear (rare); or surgery to remove the adenoids. -If the eardrum is bulging additional treatment may be necessary. MEDICATIONS: -Use ear drops to relieve pain. You may use non-prescription drops or those prescribed for a previous infection. They will not cure the infection. -Use non-prescription drugs, such as acetaminophen, to reduce pain and fever. -Antibiotics may be prescribed, if the infection appears to be bacterial rather than viral. Finish the medication. The infection may remain active for several days after symptoms disappear. ACTIVITY: Rest in bed or reduce activity until fever and pain subside. REPORT: -The following occur during treatment: Fever. Severe headache. Earache that persists longer than 2 days. despite treatment. Swelling around the ear. Convulsions. Twitching of the face muscles. Dizziness [facility] [address] [place] [id number] Emergency Department Diagnosis: Assessment COUGH: Your doctor wants you to have this information about coughing. The body has a cough reflex which helps expel mucous secretions and irritants from the lung and airway passages. Cough spasms are periods of continuous coughing lasting several minutes. Most coughs is caused by virus infections which may last for up to 2-3 weeks. Coughing helps to protect the lung from pneumonia. A persistent cough lasting longer than 4-6 weeks requires medical evaluation by your primary care doctor. Treatment of cough includes measures to loosen the cough and thin the mucous. Warm liquids, cough drops, and nonprescription cough medicine may help reduce dry hacking cough. Use a humidifier if necessary as dry air can make coughs worse. Ultrasonic humidifiers are especially useful as they kill molds and many bacteria. Some cough medicines have antihistamines, decongestants, or alcohol in them; there is no proof that any of these help control cough. Prescription cough medicine or those with dextromethorphan (DM) should be reserved for dry coughs that prevent sleep or cause spasms or chest pain. Avoid any exposure to cigarette smoke as this will worsen the cough or make it last much longer. Call your doctor right away if you or your child have increased breathing difficulty, a high fever, a cough that lasts longer than 3 weeks, or other serious complaints. documented in this encounter [facility] History of Present illness Narrative 05-10-2023 Aria Steward APRN.NINFA - 05/10/2023 8:48 AM EDT Note Date & Type Note Facility 05-10-2023 History of Presen t illness Narrative Subjective HPI Richar presents today with complaint of red, itchy eye, with yellow drainage in the left eye. He states it started yesterday in the morning, her reports that he had a cold a week ago that has resovled, he denies wearing contacts, and states he has not got anything in the eye. He denies pain, or change in vision. He used otc eye drops yesterday. History reviewed. No pertinent past medical history. No past surgical history on file. ALLERGIES Patient has no known allergies. MEDICATIONS trimethoprim-polymyxin (POLYTRIM) 10,000 unit- 1 mg/mL ophthalmic solution Use 1 Drop in the right eye every 4 hours for 7 days. No family history on file. Social History Tobacco Use Smoking status: Every Day Types: Cigarettes Smokeless tobacco: Never Review of Systems Eyes: Positive for discharge and redness. All other systems reviewed and are negative. Objective Physical Exam Constitutional: Appearance: Normal appearance. HENT: Head: Normocephalic and atraumatic. Nose: Nose normal. Eyes: General: Right eye: No discharge. Left eye: Discharge present. Extraocular Movements: Extraocular movements intact. Pupils: Pupils are equal, round, and reactive to light. Cardiovascular: Rate and Rhythm: Normal rate and regular rhythm. Pulses: Normal pulses. Pulmonary: Effort: Pulmonary effort is normal. Abdominal: General: Abdomen is flat. Musculoskeletal: General: Normal range of motion. Cervical back: Normal range of motion and neck supple. Skin: General: Skin is warm. Neurological: General: No focal deficit present. Mental Status: He is alert and oriented to person, place, and time. ASSESSMENT/PLAN: 1. Bacterial conjunctivitis - ICD9: 372.39, 041.9, ICD10: H10.9 - see medication orders - course and contagiousness issues discussed, including hand washing. - Instructed to call if high fever, development of periorbital redness or swelling, eye pain, visual changes, concerns or if symptoms persist. - Referral to Ophthalmology of symptoms do not improve in 2 days Aria Steward APRN.[employer] documented in this encounter [facility] Evaluation note Note Date & Type Note Facility Evaluation note [facility] Evaluation note Note Date & Type Note Facility Evaluation note Diagnosis Bacterial conjunctivitis- Primary Other conjunctivitis documented in this encounter [facility] Evaluation note Note Date & Type Note Facility Evaluation note Diagnosis Non-recurrent acute serous otitis media of right ear- Primary Acute cough documented in this encounter [facility] Evaluation note Note Date & Type Note Facility Evaluation note Diagnosis Dental infection- Primary Acute apical periodontitis of pulpal origin documented in this encounter [facility] Summary Purpose Family History No Family History Records FoundNo Family History Records FoundNo Family History Records FoundNo Family History Records Found Advance Directives No Advanced Directives Records Found Advance Directive Response Recorded Date/ Time Living Will No January 28, 2022 2:28pm Power of [employer] No January 28 2:28pm Chief Complaint and Reason for Visit Chief Complaint LEFT SHOULDER Additional Source Comments (unrecognized sect ion and content) No Status Records FoundNo Status Records FoundNo Status Records FoundNo Status Records Found INFORMATION SOURCE (unrecogn ized section and content) DATE CREATED AUTHOR 03/15/2020 [facility] DATE CREATED AUTHOR AUTHOR'S ORGANIZ ATION 11/20/2020 [facility] DATE CREATED AUTHOR AUTHOR'S ORGANIZ ATION 03/02/2022 [facility] DATE CREATED AUTHOR AUTHOR'S ORGANIZ ATION [facility] Goals (unrecognized section and content) Goals may be documented in a n alternate section Source Comments (unrecognize d section and content) In the event this informatio n is protected by the Federal Confidentiality of Alcohol and Drug Abuse Patient Records regulations: The Federal rules restrict any use of the information to criminally investigate or prosecute any alcohol or drug abuse patient.[facility] event this information is protected by the Federal Confidentiality of Alcohol and Drug Abuse Patient Records regulations: The Federal rules restrict any use of the information to criminally investigate or prosecute any alcohol or drug abuse patient.[facility] event this information is protected by the Federal Confidentiality of Alcohol and Drug Abuse Patient Records regulations: The Federal rules restrict any use of the information to criminally investigate or prosecute any alcohol or drug abuse patient.[facility] Reason for Visit (unrecogniz ed section and content) Reason Comments Eye Problem Left eye irritation x 1 day Reason Comments Chest Congestion cough, scratchy thro at x 3 days Reason Comments Dental Problem Tooth extraction 1 w [place] [employer] [place] [place] ago-now pain in right jaw FOR RECORDS PERTAINING TO PATIENTS WHO ARE OR HAVE BEEN ENROLLED IN A CHEMICAL DEPENDENCY/SUBSTANCEABUSE PROGRAM, SOME INFORMATION MAY BE OMITTED. This clinical summary was aggregated from multiple sources. Caution should be exercised in using it in the provision of clinical care. This summary normalizes information from multiple sources, and as a consequence, information in this document may materially change the coding, format and clinical context of patient data. In addition, data may be omitted in some cases. CLINICAL DECISIONS SHOULD BE BASED ON THE PRIMARY CLINICAL RECORDS. [facility] [employer] [facility]. provides no warranty or guarantee of the accuracy or completeness of information in this document.
[2025-09-13 21:43] LABS: Hematocrit 29.6 % (40-54); Hemoglobin 9.8 g/dL (13.0-16.5); Immature Granulocytes Count 0.070 X10^3/uL (0.0-0.0); Mean Corp Hgb Conc 33.1 g/dL (32-36); Mean Corpuscular Volume 89.2 fL (80-94); Mean Platelet Vol. 8.8 fl (6.2-12.0); NRBC Flagged by Analyzer 0 % (0-5); Platelet Count 506 K/mm3 (150-450); RBC Distribution Width CV 14.4 % (11.6-14.6); RBC Distribution Width SD 45.1 fl (35.1-43.9); Red Blood Count 3.32 M/mm3 (4.6-6.2); White Blood Count 8.6 K/mm3 (4.4-11.0)
--- NOTE | 2025-09-13 21:55 | CT_ITS ---
PROCEDURE: CTA CHEST W/WO CONTRAST 09/13/2025 REASON FOR EXAM: RECENT TRAUMA, COMPLAINING OF HEMOPTYSIS TECHNIQUE: Procedure Code: [id number] Modality: CT Procedure: CTA CHEST W/WO CONTRAST Multiplanar Sagittal and Coronal images were obtained. 3D post processing was performed. CONTRAST: Isovue 370 VOLUME: 96 mL One or more dose reduction techniques were used (e.g., Automated exposure control, adjustment of the mA and/or kV according to patient size, use of iterative reconstruction technique). RADIATION DOSE SUMMARY: DLP: 259.86 mGycm COMPARISON: None. FINDINGS: PULMONARY VESSELS: No filling defects suspicious for pulmonary arterial emboli. Normal caliber main pulmonary trunk. No evidence of cardiac strain. LUNGS/PLEURA: Clear. No pneumothorax or pleural effusion. Patent central airways. MEDIASTINUM: Unremarkable. No lymphadenopathy. HEART: Normal in size. No pericardial effusion. No coronary artery calcification. THORACIC AORTA: Normal. No aneurysm or dissection. UPPER ABDOMEN: Unremarkable, as visualized. BONES: Chronic compression fracture deformities of the T5-T8 vertebrae status post multisegment posterior instrumented fusion from T2-T10, with intact appearing hardware. CT/CTA Chest W/WO Contrast IMPRESSION: No acute intrathoracic abnormality. No pulmonary arterial emboli. Reading Location: [id number]
[2025-09-13 22:04] LABS: Anion Gap 10 (5-15); BUN 11 mg/dL (4-19); BUN/Creat Ratio 16.6 RATIO (10-20); Calcium,Total 9.6 mg/dL (7.6-11.0); Carbon Dioxide 28.8 mmol/L (21.0-32.0); Chloride 106 mmol/L (98-108); Estimated Creatinine Clearance 195.19 ml/min (50-250); Glucose 119 mg/dL (70-99); Potassium 4.1 mmol/L (3.3-5.1)
--- NOTE | 2025-09-13 22:16 | EKG12_ITS ---
Test Reason : BACK Blood Pressure : */* mmHG Vent. Rate : 85 BPM Atrial Rate : 85 BPM P-R Int : 150 ms QRS Dur : 98 ms QT Int : 346 ms P-R-T Axes : 61 65 71 degrees QTcB Int : 411 ms Normal sinus rhythm Nonspecific T wave abnormality Abnormal ECG Confirmed by MEMO RODRIGUES MD ([id number]), newspaper editor RICHA PEREZ ([id number]) on 09/14/2025 12:24:40 PM Referred By: Confirmed By: MEMO RODRIGUES MD
[2025-09-13 22:20] VITALS: BP 154/96; PULSE 80; RESP 18; O2SAT 95
[2025-09-14 02:00] VITALS: BP 110/72; PULSE 71; RESP 18; O2SAT 98
[2025-09-14 03:02] VITALS: BP 132/67; PULSE 75; RESP 16; TEMP 36.6; O2SAT 97
== END 2025-09-14 03:10 | disposition home or self-care (01) ==
PROVIDERS: Emergency Provider Student in an Organized Health Care Education/Training Program; Visit Provider Student in an Organized Health Care Education/Training Program
DX: S22.019D Unspecified fracture of first thoracic vertebra, subsequent encounter for fracture with routine healing (principal); G95.19 Other vascular myelopathies; Z98.1 Arthrodesis status; W14.XXXD Fall from tree, subsequent encounter; Y92.89 Other specified places as the place of occurrence of the external cause; F17.290 Nicotine dependence, other tobacco product, uncomplicated; S22.059D Unspecified fracture of T5-T6 vertebra, subsequent encounter for fracture with routine healing; S22.069D Unspecified fracture of T7-T8 vertebra, subsequent encounter for fracture with routine healing
CPT/HCPCS: 71275; 72156; 72157; 72158; 80048; 85025; 93005; 96374; 96375; 96376; 99285; A9575; Q9967; A4216

== ENCOUNTER 2025-09-18 09:15 | Emergency (ER) | payer SELFPAY ==
[2025-09-18 09:16] VITALS: BP 148/97; PULSE 89; RESP 14; TEMP 36.6; O2SAT 100; BMI 21.8
--- NOTE | 2025-09-18 09:37 | EDS_ITS ---
HPI History of Present Illness Chief Complaint: Back Narrative Narrative: 24-year-old male presents to the emergency department with neck pain status post surgery. He relates history that he fell out of a deer stand and had back surgery on 09/05/2025. He was released from the hospital a few days later. He presented to [place] emergency department within the last week where he had a workup because he was having postoperative pain. He states he was told he had a fluid collection, and was given a prescription for oxycodone-acetaminophen to take every 4 hours. He states he took his last pill this morning at 4 AM, approximately 5-1/2 hours ago. He is having the same pain that he had previously. Denies any fevers or chills, no exacerbating or alleviating factors. He states that he has arranged follow-up with the orthopedic spine, Dr. Sousa for the 26. Quite frankly, he states he is here because he needs a refill of his medication that he was prescribed previously. No new symptoms. PFSH PFSH Home Medications ?Medication ?Instructions ?Recorded ?Last Taken ?Type ibuprofen 600 mg tablet (IBU) 600 mg PO Q8H 09/13/25 U nknown History methocarbamol 500 mg tablet 500 mg PO Q8H 09/13/25 Unk nown History oxycodone-acetaminophen 5 mg-325 1 tab PO Q4H PRN Pain 4 days #24 09/14/25 Unknown Rx mg tablet TABLETS oxycodone-acetaminophen 5 mg-325 1 tab PO Q4H PRN pain 3 days #18 09/18/25 Unknown Rx mg tablet (Percocet) tabs Allergy/AdvReac Type Severity Reaction Status Date / Time No Known Allergies Allergy Verified 09/18/25 09:16 Surgical History Hx of appendectomy History of back surgery Social History Smoking Status: Current every day smoker tobacco type: e-cigarettes ROS ROS ED ROS Narrative Review of systems positive for upper back pain, as well as lower back pain. No fevers or chills, no nausea or vomiting, no exacerbating or alleviating factors. EXAM Physical Exam Narrative Exam Narrative: Afebrile. Vital signs noted. Nontoxic-appearing. Cardiovascular examination regular rate and rhythm. Lungs are clear to auscultation bilaterally. Abdomen is soft and nontender without guarding or rebound. Neurological examination nonfocal, nonlateralizing, ambulatory in ED, carrying a bag with a pillow contained in it. Inspection of his surgical incision shows minimal diffuse ten derness surrounding without erythema or large amount of fluctuance, no purulent drainage noted. Const Vital Signs: 09/18/25 09:16 09/18/25 09:49 Temperature 98 F 98 F Temperature Source Temporal Pulse Rate 89 89 Respiratory Rate 14 14 Blood Pressure 148/97 H 148/97 H Blood Pressure Mean 114 114 Pulse Ox 100 100 Oxygen Delivery Method Room Air MDM MDM MDM Narrative Medical decision making narrative: I do not feel differential diagnosis is applicable here. I reviewed his prior ED visit. He had MRI of the entire spine. He was diagnosed with a postsurgical seroma. As he was out of his opiate pain medication, and this being the weekend, I will write him a prescription for 3 additional days to take every 4 hours as needed for pain. He was told that future prescriptions especially for narcotic pain medication should not come from the ED but from a primary care provider or orthopedics. He acknowledged an understanding. He was given 1 dose of oxycodone here. I do not feel that he needs any repeat imaging. I strongly recommended follow-up with orthopedic spine surgery [place], as well as for his postsurgical seroma. Return instructions to the emergency department were reviewed. Disposition is discharged home in stable condition. History & Record Review Discussion w/independent historian: Patient Additional record(s) reviewed:: Prior ED visit Discharge Plan Triage Chief Complaint: Back ED Provider: Abdirashid Briggs Dx/Rx/DC Orders Clinical Impression: History of back surgery, Postoperative seroma of subcutaneous tissue after non- dermatologic procedure, Has run out of medications, Medication refill Instructions: Medication Refill, ED Seroma, Postsurgical Prescriptions: New oxycodone-acetaminophen [Percocet] 5-325 mg tablet 1 tab PO Q4H PRN (Reason: pain) 3 Days Qty: 18 0RF No Action methocarbamol 500 mg tablet 500 mg PO Q8H ibuprofen [IBU] 600 mg tablet 600 mg PO Q8H oxycodone-acetaminophen 5-325 mg tablet 1 tab PO Q4H PRN (Reason: Pain) 4 Days Qty: 24 0RF Primary Care Provider: Care Physician,No Primary Referrals: Denis Sousa MD [Med Staff - Active Staff, Orthopedics] - As soon as possible Simone Espinoza MD [Med Staff - Active Staff, Family Practice] - As soon as possible Care Physician,No Primary [Primary Care Provider, Medical] Activity Restrictions/Additional Instructions: Follow-up with spine surgery as scheduled on the 26 or sooner if possible. You should follow-up with a primary care provider as well. Further prescriptions for narcotic pain medication should be through orthopedics or a primary care provider and not the emergency department. Print Language: Romansh Disposition Disposition: Home, Self Care Discharge Date/Time: 09/18/25 09:59
[2025-09-18 09:49] VITALS: BP 148/97; PULSE 89; RESP 14; TEMP 36.6; O2SAT 100
--- OUTSIDE RECORDS SUMMARY | 2025-09-18 09:56 | XMS RPT_ITS | CCD ---
Author Organization [facility] Care Team Providers Care It Technical Specialist Name Role Phone LINDA CUELLAR Attending Unavailable [...] on above: Take 1 capsule by mo [facility] three times a day as needed for [...] 40 tablet 12/29/2024 01/08/2025 Active polymyxin b 42560 unt/ml / trimethoprim 1 mg/ml ophthalmic solution [...] CNOV Office Visit ([facility] ) RICHAR MACIEL ([id number]) 2000 M Date Time Provider Department 12/29/24 10:15 AM ASHLEY NEFF [facility] During your visit today, we recorded the following information about you: Temperature Pulse Respiration Blood pressure 98 degrees 68/minute 16/minute 136/84 Weight 84.7 kg Ashley Neff PA-C 12/29/2024 9:36 AM Signed This note was created using BCNX. Subjective Richar Maciel is a 24 year [...] Service: OFFICE/OUTPATIENT [facility] 30 MINUTES [[id number]] Letter Text Encounter Status:Closed by ASHLEY NEFF on 12/29/24 Normal [facility] Chest 1 View (Portable)on Chest 1 View (Portable) [facility] Imaging Services [address] [place] [id number] Chest 1 View (Portable) MR#: [id number] Acct: [id number] Name: RICHAR MACIEL Rep #: [id number] : 2000 M 21 From: El gordillo MD PCP: Care Physician,No Primary Status: DEP ER Study: Chest 1 View (Portable) Date of Exam: 01/28/22 Exam# [id number] Ordering Dr: Argentina Jones DO INDICATION: back pain EXAMINATION/TECHNIQUE: X-RAY - XR Chest 1 View COMPARISON: None. FINDINGS: The lungs are clear. The cardiomediastinal silhouette is unremarkable. No pleural effusion or pneumothorax. No acute osseous abnormalities. RAD/Chest 1 View (Portable) IMPRESSION: No acute radiographic abnormalities. Electronically Signed: El Sim MD at 16:35 EDT , CC: Dr. Argentina Jones DO; No Primary Care Physician Clinical Documentation Specialist: Signed Normal [facility] Emergency Department Summary on 01-28-2022 Emergency Department Summary [facility] Medical Records Department [address] [place] [id number] Emergency Department Summary 01/28/22 MR#: [id number] Acct: [id number] Name: RICHAR MACIEL Rep #: [id number] : 2000 21 From: Argentina Jones DO [...] distended and (more content not included)... Normal [facility] Vital Signs Date Time Vital Sign Value Performing Clinician Facility 12-29-2024 09:14-0500 Body temperature 98.01 [degF] [employer] Work Phone: [facility] 12-29-2024 09:14-0500 Body weight 84.7 kg Vastari PA-[employer] Work Phone: [facility] 12-29-2024 09:14-0500 Diastolic blood pressure 84 mm[Hg] Vastari PA-C Work Phone: [facility] 12-29-2024 09:14-0500 Heart rate 68 /min Vastari PA-C Work Phone: [facility] 12-29-2024 09:14-0500 Respiratory rate 16 /min Vastari PA-C Work Phone: [facility] 12-29-2024 09:14-0500 SaO2% (BldA) [Mass fraction] 97 % Ashley Coelhobarbie PA-C Work Phone: [facility] 12-29-2024 09:14-0500 Systolic blood pressure 136 mm[Hg] Ashley Neff PA-C Work Phone: [facility] 08-07-2023 08:46-0400 Body temperature 97.7 [degF] Aisha Fox APRN.DETECTOR CAR OPERATOR Work Phone: [facility] 08-07-2023 08:46-0400 Body weight 79.38 kg iAsha Fox APRN.DETECTOR CAR OPERATOR Work Phone: [facility] 08-07-2023 08:46-0400 Diastolic blood pressure 62 mm[Hg] Aisha Fox APRN.DETECTOR CAR OPERATOR Work Phone: [facility] 08-07-2023 08:46-0400 Heart rate 72 /min Aisha Fox APRN.DETECTOR CAR OPERATOR Work Phone: [facility] 08-07-2023 08:46-0400 Respiratory rate 16 /min Aisha Fox APRN.DETECTOR CAR OPERATOR Work Phone: [facility] 08-07-2023 08:46-0400 SaO2% (BldA) [Mass fraction] 98 % Aisha Fox APRN.DETECTOR CAR OPERATOR Work Phone: [facility] 08-07-2023 08:46-0400 Systolic blood pressure 122 mm[Hg] Aisha Fox APRN.DETECTOR CAR OPERATOR Work Phone: [facility] 05-10-2023 08:34-0400 Body temperature 97.3 [degF] Aria Steward POTATO CHIP SACKING MACHINE OPERATOR.DETECTOR CAR OPERATOR Work Phone: [facility] 05-10-2023 08:34-0400 Body weight 79.11 kg Aria Steward POTATO CHIP SACKING MACHINE OPERATOR.DETECTOR CAR OPERATOR Work Phone: [facility] 05-10-2023 08:34-0400 Diastolic blood pressure 72 mm[Hg] Aria Steward POTATO CHIP SACKING MACHINE OPERATOR.DETECTOR CAR OPERATOR Work Phone: [facility] 05-10-2023 08:34-0400 Heart rate 54 /min Aria Callow POTATO CHIP SACKING MACHINE OPERATOR.DETECTOR CAR OPERATOR Work Phone: [facility] 05-10-2023 08:34-0400 Respiratory rate 16 /min Aria Steward POTATO CHIP SACKING MACHINE OPERATOR.DETECTOR CAR OPERATOR Work Phone: [facility] 05-10-2023 08:34-0400 SaO2% (BldA) [Mass fraction] 97 % Aria Steward POTATO CHIP SACKING MACHINE OPERATOR.DETECTOR CAR OPERATOR Work Phone: [facility] 05-10-2023 08:34-0400 Systolic blood pressure 122 mm[Hg] Aria Tamikojoy POTATO CHIP SACKING MACHINE OPERATOR.DETECTOR CAR OPERATOR Work Phone: [facility] 01-28-2022 14:02-0400 Body height 195.58 cm [facility] Work Phone: 01-28-2022 14:02-0400 Body mass index (BMI) [Ratio] 21.9 kg/m2 [facility] Work Phone: 01-28-2022 14:02-0400 Body temperature 97.3 [degF] [facility] Work Phone: 01-28-2022 14:02-0400 Body weight 83.91 kg [facility] Work Phone: 01-28-2022 14:02-0400 Diastolic blood pressure 84 mm[Hg] [facility] Work Phone: 01-28-2022 14:02-0400 Heart rate 69 /min [facility] Work Phone: 01-28-2022 14:02-0400 Respiratory rate 16 /min [facility] Work Phone: 01-28-2022 14:02-0400 SaO2% (BldA) [Mass fraction] 100 % [facility] Work Phone: 01-28-2022 14:02-0400 Systolic blood pressure 138 mm[Hg] [facility] Work Phone: Encounters Encounter Date Encounter Type Care Provider Facility Start: 12-29-2024 End: 12-29-2024 Office outpatient new 30 minutes Ashley Neff PA-C Work Phone: [facility] Comment on above: Dental infection (Pr imary Dx) Start: 12-29-2024 End: 12-29-2024 ambulatory Facility:[facility] Start: 08-07-2023 End: 08-07-2023 Patient encounter procedure Aisha Fox POTATO CHIP SACKING MACHINE OPERATOR.DETECTOR CAR OPERATOR Work Phone: [facility] Comment on above: Non-recurrent acute serous otitis media of right ear (Primary Dx); Acute cough Start: 05-10-2023 End: 05-10-2023 Patient encounter procedure Aria Steward POTATO CHIP SACKING MACHINE OPERATOR.DETECTOR CAR OPERATOR Work Phone: [facility] Comment on above: Bacterial conjunctiv itis (Primary Dx) Start: 01-28-2022 End: 01-28-2022 Emergency department patient visit [facility]Emergency Department Start: 03-14-2020 Patient encounter procedure [facility] Start: 12-08-2018 End: 12-12-2018 Patient encounter procedure PHYSICIAN [facility] Plan of Treatment Date Care Activity Detail Author Start: 06-28-2024 Covid-19 Vaccine ( season) Covid-19 Vaccine ( season) [facility] Start: 06-28-2024 Influenza vaccination Influenza Vaccine (#1) [facility] Start: 06-28-2023 Influenza vaccination [facility] Start: 10-28-2022 DEPRESSION ASSESSMENT DEPRESSION ASSESSMENT [facility] Start: 01-28-2022 Plain chest X-ray Chest 1 View (Portable) [facility] Work Phone: Start: 2018 Hepatitis B Vaccine (1 of 3 - 19+ 3-dose series) Hepatitis B Vaccine (1 of 3 - 19+ 3-dose series) [facility] Start: 2018 Pneumococcal vaccination Pneumococcal Vaccine (1 of 2 - PCV) [facility] Start: 2018 Urine microalbumin profile [facility] Start: 2017 Anxiety Screening Anxiety Screening [facility] Start: 2017 Depression Screening Depression Screening [facility] Start: 2017 HEPATITIS C SCREENING HEPATITIS C SCREENING [facility] Start: 2017 Hepatitis C screening Hepatitis C Screening [facility] Start: 2017 HIV SCREENING HIV SCREENING [facility] Start: 2017 HIV screening HIV Screening [facility] Start: 2015 Meningococcal B Vaccine: Consider Based On Risk (1 of 2 - Patient Seeks Protection) Meningococcal B Vaccine: Consider Based On Risk (1 of 2 - Patient Seeks Protection) [facility] Start: 2014 HPV Vaccine (1 - Male 3-dose series) HPV Vaccine (1 - Male 3-dose series) [facility] Start: 2013 PEDS TO ADULT TRANSITION ANNUAL ASSESSMENT PEDS TO ADULT TRANSITION ANNUAL ASSESSMENT [facility] Start: 2011 PEDS TO ADULT TRANSITION INITIAL DISCUSSION PEDS TO ADULT TRANSITION INITIAL DISCUSSION [facility] Start: 2008 HPV VACCINE (1 - Male 2-dose series) HPV VACCINE (1 - Male 2-dose series) [facility] Start: 2005 Pneumococcal vaccination Pneumococcal Vaccine (1 - PCV) [facility] Start: 03-22-2000 COVID-19 VACCINE (#1) COVID-19 VACCINE (#1) [facility] Start: 1999 HEPATITIS B (1 of 3 - 3-dose series) HEPATITIS B (1 of 3 - 3-dose series) [facility] Start: 1999 Hepatitis B Vaccine (1 of 3 - 3-dose series) Hepatitis B Vaccine (1 of 3 - 3-dose series) [facility] Patient Education ED Back Sprain/Strain [facility] Work Phone: Patient referral [facility] Work Phone: Payers Date Payer Category Payer Unknown [id number] 1967 Unknown [id number] 1967 Unknown [id number] Self-pay SELF PAY INSURANCE [id number] Unknown SELF PAY INSURANCE [id number] Social History Date Type Detail Facility [facility]: [facility]28[facility] Work Phone: Start: 2000 Sex Assigned At Male W [facility] Work Phone: Start: 05-10-2023 [facility] History of tobacco use Cigarette Smoker [facility] Start: 05-10-2023 Tobacco use and exposure Smokeless tobacco non-user [facility] Start: 05-10-2023 End: 12-29-2024 History of Social function [facility] Start: 05-10-2023 End: 12-29-2024 Tobacco use panel [facility] Start: 2000 Sex Assigned At Not on file C [facility] Progress note 12-29-2024 Note Date & Type Note Facility 12-29-2024 Note HNO ID: [id number] Author: ASHLEY NEFF PA-C Service: ? Author Type: Physician Manager Pool Type: Progress Notes Filed: 12/29/2024 09:36 Note Text: This note was created using BCNX. Subjective Richar Maciel is a 24 year [...] POTASSIUM 500 MG TABLET Ashley Neff PA-C [facility] History of Present illness Narrative 12-29-2024 Ashley Neff PA-C - 12/29/2024 9:32 AM EST Note Date & Type Note Facility 12-29-2024 History of Presen t illness Narrative This note was created using [employer]. Subjective Richar Maciel is a 24 year [...] Ashley Neff PA-C documented in this encounter [facility] History of Present illness Narrative 08-07-2023 Aisha Fox APRN.DETECTOR CAR OPERATOR - 08/07/2023 9:00 AM EDT Note Date [...] worsening of symptoms occurs. Aisha Fox APRN DETECTOR CAR OPERATOR documented in this encounter [facility] Instructions 08-07-2023 Patient Instructions Note Date & Type Note Facility 08-07-2023 Instructions Aisha Fox APRN.DETECTOR CAR OPERATOR - 08/07/2023 8:58 AM EDT [facility] [...] sprays and irrigation kits can be purchased [id number]. Saline mixes can also be purchased or [...] are often combined with antihistamines in oral, ilbd-vuk-kzmoaik allergy drugs. In the [place], pseudoephedrine [...] inflammation. This drug is available as an rczk-pii-chhbwwu nasal spray that must be used three [...] costly. Immunotherapy is usually started by an break and load operator. Treatment begins with several months of weekly [...] Twitching of the face muscles. Dizziness [facility] [address] [place] [address] Emergency Department Diagnosis: Assessment COUGH: Your doctor [...] other serious complaints. documented in this encounter [facility] History of Present illness Narrative 05-10-2023 Aria [...] not improve in 2 days Aria Steward APRN.DETECTOR CAR OPERATOR documented in this encounter [facility] Evaluation note Note Date & Type Note Facility Evaluation note [facility] Evaluation note Note Date & Type Note Facility Evaluation note Diagnosis Bacterial conjunctivitis- Primary Other conjunctivitis documented in this encounter [facility] Evaluation note Note Date & Type Note Facility Evaluation note Diagnosis Non-recurrent acute serous otitis media of right ear- Primary Acute cough documented in this encounter [facility] Evaluation note Note Date & Type Note Facility Evaluation note Diagnosis Dental infection- Primary Acute apical periodontitis of pulpal origin documented in this encounter [facility] Summary Purpose Family History No Family History Records FoundNo Family History Records FoundNo Family History Records FoundNo Family History Records Found Advance Directives No Advanced Directives Records Found Advance Directive Response Recorded Date/ Time Living Will No January 28, 2022 2:28pm Power of Buttonhole Marker No January 28 2:28pm Chief Complaint and Reason for Visit Chief Complaint LEFT SHOULDER Additional Source Comments (unrecognized sect ion and content) No Status Records FoundNo Status Records FoundNo Status Records FoundNo Status Records Found INFORMATION SOURCE (unrecogn ized section and content) DATE CREATED AUTHOR 03/15/2020 [facility] DATE CREATED AUTHOR AUTHOR'S ORGANIZ ATION 11/20/2020 [facility] DATE CREATED AUTHOR AUTHOR'S ORGANIZ ATION 03/02/2022 [facility] DATE CREATED AUTHOR AUTHOR'S ORGANIZ ATION [facility] Goals (unrecognized section and content) Goals may be documented in a n alternate section Source Comments (unrecognize d section and content) In the event this informatio n is protected by the Federal Confidentiality of Alcohol and Drug Abuse Patient Records regulations: The Federal rules restrict any use of the information to criminally investigate or prosecute any alcohol or drug abuse patient.[facility] the event this information is protected by the Federal Confidentiality of Alcohol and Drug Abuse Patient Records regulations: The Federal rules restrict any use of the information to criminally investigate or prosecute any alcohol or drug abuse patient.[facility] Hospital[facility] the event this information is protected by the Federal Confidentiality of Alcohol and Drug Abuse Patient Records regulations: The Federal rules restrict any use of the information to criminally investigate or prosecute any alcohol or drug abuse patient.[facility] Reason for Visit (unrecogniz ed section and content) Reason Comments Eye Problem Left eye irritation x 1 day Reason Comments Chest Congestion cough, scratchy thro at x 3 days Reason Comments Dental Problem Tooth extraction 1 w [place] ago-now pain in right jaw FOR RECORDS [...] BE BASED ON THE PRIMARY CLINICAL RECORDS. [facility] [employer] [facility]. provides no warranty or guarantee of the accuracy or completeness of information in this document.
== END 2025-09-18 09:59 | disposition home or self-care (01) ==
LOC: ED 09:53
PROVIDERS: Emergency Provider Emergency Medicine; Visit Provider Emergency Medicine
DX: L76.32 Postprocedural hematoma of skin and subcutaneous tissue following other procedure (principal); F17.290 Nicotine dependence, other tobacco product, uncomplicated; Z98.890 Other specified postprocedural states; Z76.0 Encounter for issue of repeat prescription
CPT/HCPCS: 99282